=== PATIENT | female | born 1995 | race Caucasian/White ===

== ENCOUNTER 2019-02-21 15:15 | Inpatient (IN) | payer OTHER ==
[2019-02-21 16:01] VITALS: BMI 27.3
[2019-02-21] MEDS ORDERED: DINOPROSTONE 10 MG VAGINAL SUPPOSITORY VG ONE (16:08)
--- NOTE | 2019-02-21 16:15 | HP ---
Past Medical History - Admission Chief Complaint: Postdates History of Present Illness: 23 yo @ 40 weeks gestation, EDC 02/20/19, admitted for Cervidil induction. She denies any contractions pain. History Source: Patient Limitations to Obtaining History: No Limitations - Past Medical History Pulmonary: Yes: Asthma ...: 2 ...Para: 1 ...Term: 1 ...EDC by [facility]: 02/20/19 - Past Surgical History Past Surgical History: Yes: None Hx Myomectomy: No Hx Transabdominal Cerclage: No - Smoking History Smoking history: Unknown if ever smoked Have you smoked in the past 12 months: No Aproximately how many cigarettes per day: 0 - Alcohol/Substance Use Hx Alcohol Use: No History of Substance Use: reports: None - Social History Usual Living Arrangement: Yes: With Significant Other History of Recent Travel: No Home Medications - Allergies Allergies/Adverse Reactions: Allergies Allergy/AdvReac Type Severity Reaction Status Date / Time No Known Allergies Allergy Verified 02/21/19 16:03 - Home Medications Home Medications: Ambulatory Orders Vitamins (Sjr) - 1 tab PO DAILY 04/28/15 Ferrous Sulfate [Feosol] 325 mg PO BID 02/06/19 Family Disease History - Family Disease History Family History: Unremarkable Review of Systems - Review of Systems Constitutional: reports: No Symptoms Eyes: reports: No Symptoms HENT: reports: No Symptoms Neck: reports: No Symptoms Cardiovascular: reports: No Symptoms Respiratory: reports: No Symptoms Gastrointestinal: reports: No Symptoms Genitourinary: reports: No Symptoms Breasts: reports: No Symptoms Reported Musculoskeletal: reports: No Symptoms Integumentary: reports: No Symptoms Neurological: reports: No Symptoms Endocrine: reports: No Symptoms Hematology/Lymphatic: reports: No Symptoms Psychiatric: reports: No Symptoms Pain Intensity: 0 Physical Exam - Maternity Vital Signs: Vital Signs Temperature 98.5 F 02/21/19 15:54 Pulse Rate 83 02/21/19 15:54 Respiratory Rate 18 02/21/19 15:54 Blood Pressure 124/82 02/21/19 15:54 O2 Sat by Pulse Oximetry (%) Constitutional: Yes: Well Nourished Eyes: Yes: Conjunctiva Clear HENT: Yes: Atraumatic Neck: Yes: Supple Cardiovascular: Yes: Regular Rate and Rhythm Lungs: Clear to auscultation Breast(s): Yes: WNL - Abdominal Exam/OB Number of Fetuses: Single Presentation: Vertex - Vaginal Exam/OB Presentation: Vertex/Position Station: -3 - Physical Exam Musculoskeletal: Yes: WNL Extremities: Yes: WNL ...Motor Strength: WNL Psychiatric: Yes: Alert, Oriented Problem List - Problems (1) Post-dates Code(s): O48.0 - POST-TERM Qualifiers: Post-term type: 40-42 weeks gestation Qualified Code(s): O48.0 - Post-term Assessment/Plan Postdates Admit for Cervidil induction. Re-evaluate in 12 hours or before if indicated.
[2019-02-21 16:23] LABS: BASO % 0.8 % (0-2.0); EOS % 0.9 % (0-4.5); HEMATOCRIT 35.3 % (32.4-45.2); MCHC 34.1 g/dl (32.0-36.0); MEAN CELL VOLUME 87.9 fl (80-96); MEAN PLT VOLUME 10.3 fl (7.5-11.1); MONO % 7.7 % (3.8-10.2); NEUT % 71.6 % (42.8-82.8); PLATELET COUNT 136 K/MM3 (134-434); RBC 4.01 M/mm3 (3.60-5.2); RDW 15.1 % (11.6-15.6); WHITE BLOOD COUNT 8.3 K/mm3 (4.0-10.0)
[2019-02-21 16:42] LABS: INR 0.93 (0.83-1.09)
[2019-02-21 16:45] LABS: ACTIVATED PTT 29.9 SECONDS (25.2-36.5)
[2019-02-21 16:46] LABS: BLOOD UREA NITROGEN 8.9 mg/dL (7-18); CALCIUM 8.6 mg/dL (8.5-10.1); CREATININE 0.7 mg/dL (0.55-1.3); POTASSIUM 4.2 mmol/L (3.5-5.1)
[2019-02-21] MEDS ORDERED: DEXTROSE 5%-LACTATED RINGERS 1,000 ML IV ONE (18:00)
[2019-02-21] MEDS ORDERED: AMPICILLIN SODIUM 2 GM VIAL IVPB STA (20:10)
[2019-02-21] MEDS ORDERED: AMPICILLIN SODIUM 2 GM VIAL ONE (21:29)
[2019-02-21] MEDS ORDERED: PROMETHAZINE HCL 25 MG/1 ML VIAL IVPUSH ONE (23:45)
[2019-02-21] MEDS ORDERED: BUTORPHANOL TARTRATE 2 MG/ML VIAL IVPUSH ONE (23:45)
[2019-02-22] MEDS ORDERED: AMPICILLIN SODIUM 1 GM VIAL ONE ×3 (01:01→12:01)
[2019-02-22] MEDS: AMPICILLIN SODIUM 1 GM VIAL IVPB SCH ×5 (01:30→17:20)
--- NOTE | 2019-02-22 09:40 | PN ---
Progress Note (short form) - Note Progress Note: 23 yo @ 40 weeks gestation, seen and evaluated. She's status post cervidil induction; she c/o moderate discomfort. FHR : Reassuring [place] : + irregular contractions VE : /-1 AROM ( clear ) A / P : Postdates S/P cervidil induction Epidural anesthesia Pitocin augmentation Problem List - Problems (1) Post-dates Code(s): O48.0 - POST-TERM Qualifiers: Post-term type: 40-42 weeks gestation Qualified Code(s): O48.0 - Post-term
[2019-02-22] MEDS ORDERED: OXYTOCIN 30 UNITS in 0.9% NS 30 UNIT/500 ML INFUS.BAG IVPB SCH (09:45)
[2019-02-22] MEDS ORDERED: FENTANYL/BUPIVACAINE/NS/PF - PCEA - 50 ML DISP.SYRIN EP ONE ×2 (09:48→14:11)
[2019-02-22] MEDS ORDERED: NALOXONE HCL 0.4 MG/ML VIAL IVPUSH PRN (11:37)
[2019-02-22] MEDS ORDERED: FENTANYL/BUPIVACAINE/NS/PF - PCEA - 50 ML DISP.SYRIN EP SCH (11:45)
[2019-02-22] MEDS ORDERED: OXYTOCIN 30 UNITS in 0.9% NS 30 UNIT/500 ML INFUS.BAG IVPB ONE (12:02)
[2019-02-22] MEDS ORDERED: OXYTOCIN 20 UNITS in 0.9% NS 20 UNIT/1,000 ML INFUS.BAG IV ONE ×2 (13:58→17:18)
[2019-02-22] MEDS ORDERED: WITCH HAZEL 50% (TUCKS) 40 PAD/JAR PAD TP PRN (15:48)
[2019-02-22] MEDS ORDERED: BENZOCAINE 28 GM HEMORRHOIDAL OINTMENT TP PRN (15:48)
[2019-02-22] MEDS ORDERED: METHYLERGONOVINE MALEATE 0.2 MG/1 ML AMP IM PRN (15:48)
[2019-02-22] MEDS ORDERED: BENZOCAINE 20% 57 GM BOTTLE TP PRN (15:48)
[2019-02-22] MEDS ORDERED: BISACODYL 10 MG SUPP.RECT RC PRN (15:48)
--- NOTE | 2019-02-22 15:53 | PN ---
Delivery - Delivery Vaginal Delivery: Spontaneous Type of Anesthesia: Epidural Episiotomy/Laceration: 1st degree EBL (cc): 300 Delivery, Single - [place] Feeding Plan Initial Plan: Elected not to breastfeed exclusively throughout hospitalization Remarks - Remarks Remarks: Normal spontaneous vaginal delivery of a live infant boy over first degree laceration. Nose / Oropharynx suctioned @ perineum. Cord clamped and cut. Baby handed to nurse Placenta expelled spontaneously intact. Laceration repaired with 2.0 Biosyn.
[2019-02-22] MEDS ORDERED: OXYTOCIN 20 UNITS in 0.9% NS 20 UNIT/1,000 ML INFUS.BAG IV SCH (16:00)
[2019-02-22] MEDS: ACETAMINOPHEN 325 MG TABLET (FP) PO PRN ×2 (17:57→21:56)
[2019-02-22] MEDS: IBUPROFEN 600 MG TABLET (FP) PO PRN ×2 (17:57→21:56)
[2019-02-22] MEDS: FERROUS SO4 325 MG TABLET (FP) PO SCH (21:59)
--- NOTE | 2019-02-23 06:39 | PN ---
Post Progress Note - Subjective Subjective: 23 yo Para 2 status post vaginal delivery, seen and evaluated. Doing well Post Day: 1 Type of Delivery: Vital Signs: Vital Signs Temperature 97.9 F 02/23/19 06:00 Pulse Rate 80 02/23/19 06:00 Respiratory Rate 18 02/23/19 06:00 Blood Pressure 131/67 02/23/19 06:00 O2 Sat by Pulse Oximetry (%) 99 02/22/19 14:30 Breast Exam: Yes: Soft Uterus: Yes: Fundus Firm Abdomen/GI: Yes: Abdomen soft Lochia: Yes: Rubra Lochia, amount: Moderate Extremities: Yes: Calves non-tender Perineum: Yes: Laceration (healing) Activity: Ambulating - Labs Labs: CBC WBC 8.3 K/mm3 (4.0-10.0) 02/21/19 16:00 RBC 4.01 M/mm3 (3.60-5.2) 02/21/19 16:00 Hgb 12.0 GM/dL (10.7-15.3) 02/21/19 16:00 Hct 35.3 % (32.4-45.2) D 02/21/19 16:00 MCV 87.9 fl (80-96) 02/21/19 16:00 MCH 30.0 pg (25.7-33.7) 02/21/19 16:00 MCHC 34.1 g/dl (32.0-36.0) 02/21/19 16:00 RDW 15.1 % (11.6-15.6) 02/21/19 16:00 Plt Count 136 K/MM3 (134-434) D 02/21/19 16:00 MPV 10.3 fl (7.5-11.1) 02/21/19 16:00 Absolute Neuts (auto) 5.9 K/mm3 (1.5-8.0) 02/21/19 16:00 Neutrophils % 71.6 % (42.8-82.8) 02/21/19 16:00 Lymphocytes % 19.0 % (8-40) 02/21/19 16:00 Monocytes % 7.7 % (3.8-10.2) 02/21/19 16:00 Eosinophils % 0.9 % (0-4.5) 02/21/19 16:00 Basophils % 0.8 % (0-2.0) 02/21/19 16:00 Nucleated RBC % 0 % (0-0) 02/21/19 16:00 Problem List - Problems (1) Post-dates Code(s): O48.0 - POST-TERM Qualifiers: Post-term type: 40-42 weeks gestation Qualified Code(s): O48.0 - Post-term (2) Status post vaginal delivery Code(s): [id number] - Assessment/Plan Status post vaginal delivery Stable Continue routine care
[2019-02-23 08:12] LABS: BASO % 0.5 % (0-2.0); EOS % 1.4 % (0-4.5); HEMATOCRIT 30.3 % (32.4-45.2); HEMOGLOBIN 10.5 GM/dL (10.7-15.3); LYMPH % 20.6 % (8-40); MCH 30.7 pg (25.7-33.7); MCHC 34.5 g/dl (32.0-36.0); MEAN CELL VOLUME 88.9 fl (80-96); MEAN PLT VOLUME 10.3 fl (7.5-11.1); MONO % 6.3 % (3.8-10.2); NEUT % 71.2 % (42.8-82.8); PLATELET COUNT 109 K/MM3 (134-434); RBC 3.41 M/mm3 (3.60-5.2); WHITE BLOOD COUNT 9.7 K/mm3 (4.0-10.0)
[2019-02-23] MEDS ORDERED: DIPHTH,PERTUSS(ACELL),TET 0.5 ML DISP.SYRIN IM ONE (10:00)
[2019-02-23] MEDS: FERROUS SO4 325 MG TABLET (FP) PO SCH ×2 (10:16→22:06)
[2019-02-23] MEDS: PRENATAL VITAMINS W/ FOLIC ACID TABLET (FP) PO SCH (10:16)
[2019-02-23] MEDS: ACETAMINOPHEN 325 MG TABLET (FP) PO PRN ×2 (10:17→18:30)
[2019-02-23] MEDS: IBUPROFEN 600 MG TABLET (FP) PO PRN ×2 (10:17→18:30)
[2019-02-23] MEDS ORDERED: SENNOSIDES/DOCUSATE COMBO (SENNA PLUS) TABLET (UD) PO PRN (22:00)
[2019-02-24] MEDS: IBUPROFEN 600 MG TABLET (FP) PO PRN ×2 (03:10→09:03)
[2019-02-24] MEDS: ACETAMINOPHEN 325 MG TABLET (FP) PO PRN ×2 (03:10→09:02)
[2019-02-24] MEDS: PRENATAL VITAMINS W/ FOLIC ACID TABLET (FP) PO SCH (09:03)
[2019-02-24] MEDS: FERROUS SO4 325 MG TABLET (FP) PO SCH (09:03)
--- NOTE | 2019-02-24 10:52 | DS ---
Physical Exam-RADIO REPAIRER Vital Signs: Vital Signs Temperature 98.8 F 02/23/19 22:00 Pulse Rate 78 02/23/19 22:00 Respiratory Rate 18 02/23/19 22:00 Blood Pressure 129/63 02/23/19 22:00 O2 Sat by Pulse Oximetry (%) 99 02/22/19 14:30 Constitutional: Yes: Well Nourished Eyes: Yes: Conjunctiva Clear HENT: Yes: Atraumatic Neck: Yes: Supple Cardiovascular: Yes: Regular Rate and Rhythm Respiratory: Yes: Regular Gastrointestinal: Yes: Normal Bowel Sounds External Genitalia: Yes: Normal Cervix: Yes: Normal Uterus: Yes: Firm ....Post : Yes: Uterus firm Extremities: Yes: WNL Neurological: Yes: Alert, Oriented ...Motor Strength: WNL Psychiatric: Yes: Alert, Oriented Labs: CBC, BMP 02/23/19 07:20 02/21/19 16:00 Delivery - Delivery Vaginal Delivery: Spontaneous Type of Anesthesia: Epidural Episiotomy/Laceration: 1st degree EBL (cc): 300 Delivery, Single - Stages of Labor Date 1st Stage Initiatied: 02/22/19 Time 1st Stage Initiated: 02:00 Date 2nd Stage Initiated: 02/22/19 Time 2nd Stage Initiated: 15:00 Date of Delivery: 02/22/19 Time of Delivery: 15:32 Time Placenta Delivered: 15:35 - Condition of [employer] Consult[employer] Present: No Gender: Male Total Hours ROM (Hrs/Mins): 6H20M - 1 Minute Total Score: 9 5 Minutes Total Score: 9 - [place] Feeding Plan Initial Plan: Elected not to breastfeed exclusively throughout hospitalization Discharge Summary Reason For Visit: INDUCTION OF LABOR Current Active Problems Post-dates (Acute) Status post vaginal delivery (Acute) Procedures: Principal: Normal vaginal delivery Hospital Course: Routine care Condition: Good - Instructions Diet, Activity, Other Instructions: CALL MD OFFICE FOR 4-6 WEEK FOLLOW UP APPOINTMENT. Disposition: HOME - Home Medications Comprehensive Discharge Medication List: Ambulatory Orders Vitamins (Sjr) - 1 tab PO DAILY 04/28/15 Ferrous Sulfate [Feosol] 325 mg PO BID 02/06/19
[2019-02-24 12:05] VITALS: BP 129/78; PULSE 74; TEMP 98.3
== END 2019-02-24 13:55 | disposition home or self-care (01) | DRG 560 ==
LOC: JLDR 15:15 → J3W 02-22 17:13
PROVIDERS: ADMIT Obstetrics & Gynecology; ATTEND Obstetrics & Gynecology
PROC: 3E0P7VZ Introduction of Hormone into Female Reproductive, Via Natural or Artificial Opening (ICD-10-PCS; 2019-02-21)
PROC: 10E0XZZ Delivery of Products of Conception, External Approach (ICD-10-PCS; principal; 2019-02-22)
PROC: 0HQ9XZZ Repair Perineum Skin, External Approach (ICD-10-PCS; 2019-02-22)
DX: O48.0 Post-term pregnancy (principal); J45.909 Unspecified asthma, uncomplicated; O62.8 Other abnormalities of forces of labor; O70.0 First degree perineal laceration during delivery; O26.893 Other specified pregnancy related conditions, third trimester; Z3A.40 40 weeks gestation of pregnancy; Z37.0 Single live birth
CPT/HCPCS: 36415; 59409; 80048; 85025; 85461; 85610; 85730; 86593; 86850; 86870; 86900; 86901; 86902; 86999; 90715